=== PATIENT | male | born 1945 | race Caucasian/White ===

== ENCOUNTER → 2017-11-10 | Outpatient (CLI) | payer OTHER, MEDICARE | LOC: M RAD 13:15 | DX: H90.6 Mixed conductive and sensorineural hearing loss, bilateral (principal); D16.4 Benign neoplasm of bones of skull and face | CPT/HCPCS: 70480 ==

== ENCOUNTER → 2025-05-10 | Outpatient (CLI) | payer OTHER, MEDICARE ==
[~2025-05-10] MED LIST: ACET500C PO; ADVI200T PO; ASPI81TA86 PO; CRES10TA PO; FISH100049 PO; GARL400T4 PO; GLUC500T53 PO; MAGN500C PO; MULTCAP12 PO; NEXI40CA PO; VERA27.5 INH
== END ==
LOC: M RAD 10:21
PROVIDERS: ATTEND Physician Assistant
DX: G95.9 Disease of spinal cord, unspecified (principal); M48.02 Spinal stenosis, cervical region; M47.812 Spondylosis without myelopathy or radiculopathy, cervical region